=== PATIENT | male | born 1965 | race Two or more races ===

== ENCOUNTER 2024-09-12 15:46 | Inpatient (IN) | payer OTHER ==
[~2024-09-12] VITALS: Ht 188 cm; Wt 90.7 kg
[2024-09-12] MEDS ORDERED: GABAPENTIN300 M2 PO (16:31)
[2024-09-12] MEDS ORDERED: CANDESARTAN CILE4 MG PO (16:31)
[2024-09-12] MEDS ORDERED: ROSUVASTATIN CAL5 MG PO (16:32)
[2024-09-12] MEDS ORDERED: MONTELUKAST SOD10 MG PO (16:32)
--- NOTE | 2024-09-12 16:32 | NUR ---
SE RECIBE PTE ALERTA Y ORIENTADO X3. REFIERE DOLOR ABDOMINAL HACE 3 ZARATE. REFIERE QUE EL RAJESH LE REALIZARON CT Y PRESENTA DIVERTIVCULOS. SE MIDE SV Y SE UBICA
[2024-09-12] MEDS ORDERED: PIPERACILLIN/TAZOBACTAM SODIUM 3.375 GM VIAL IV ONE (18:00)
[2024-09-12] MEDS ORDERED: ONDANSETRON HCL 2 MG/ML VIAL IV ONE (18:00)
[2024-09-12] MEDS ORDERED: 0.9 % SODIUM CHLORIDE 500 ML IV ONE (18:00)
[2024-09-12] MEDS ORDERED: MORPHINE SULFATE 4 MG/ML VIAL IV ONE (18:15)
[2024-09-12 18:29] LABS: HEMATOCRIT 42.7 % (39.0-48.0); HEMOGLOBIN 14.8 g/dL (13-16.00); MEAN CELL VOLUME 92.8 fL (80.0-100.00); MEAN CORPUSCULAR HEMOGLOBIN 32.2 pg (27.00-32.0); MEAN CORPUSCULAR HGB CONC 34.7 g/dl (32.0-36.0); PLATELET COUNT 272 K/uL (150-450); RED BLOOD COUNT 4.61 M/uL (4.00-6.00); RED CELL DISTRIBUTION WIDTH 13.9 % (11.5-14.5)
--- NOTE | 2024-09-12 18:47 | NUR ---
SE EDUCA A PTE SOBRE [place] MEDICO, SE ANGIE MUESTRAS DE LAB[facility]ATORIO UTILIZANDO MEDIDAS ASEPTICA. SE COLOCA H/L TAURUS DE EDEMA. SE ADMINISTRAN MEDICAMENTOS LOS CUALES TOLERA. SE NOTIFICA ESTUDIO DE RX Y CT PENDIENTES A REALIZAR.
[2024-09-12 19:04] LABS: ALBUMIN 3.4 gm/dL (3.4-5.0); BILIRUBIN TOTAL 0.72 mg/dL (0.3-1.2); CREATININE SERUM 0.84 mg/dL (0.70-1.30); GFR 92.89; GLOBULINA 4.9 G/DL (2.4-3.5); POTASSIUM 4.3 mEq/L (3.5-5.1); TOTAL PROTEIN 8.3 gm/dL (6.4-8.2)
[2024-09-12 19:07] LABS: PARTIAL THROMBOPLASTIN TIME 28.9 SECONDS (22.0-34.0); PH,URINE 7.5 (5.0-8.0); PROTHROMBIN TIME 10.9 SECONDS (9.0-11.5); URINE APPEARANCE Clear; URINE BILIRRUBIN Negative (NEGATIVE); URINE BLOOD Small; URINE COLOR Yellow; URINE GLUCOSE Negative (NEGATIVE); URINE KETONE Negative (NEGATIVE); URINE LEUKOCYTE Negative; URINE NITRATE Negative; URINE PROTEIN Negative (NEGATIVE)
[2024-09-12 19:11] LABS: URINE EPITHELIAL CELLS 2.1 uL (0.0-38.8); URINE RBC 29.5 uL (0.0-20.8)
[2024-09-12 19:16] LABS: URINE BACTERIA 1.2 uL (0.0-1933); URINE WBC 0.9 uL (0.0-23.2)
[2024-09-12] MEDS ORDERED: MORPHINE SULFATE 4 MG/ML CARTRIDGE IV ONE (21:45)
[2024-09-12] MEDS ORDERED: MEPERIDINE HCL/PF 50 MG/ML VIAL IV ONE (21:45)
[2024-09-12] MEDS ORDERED: PANTOPRAZOLE SODIUM 40 MG/VIAL VIAL IV SCH (22:35)
[2024-09-12] MEDS ORDERED: MORPHINE SULFATE 4 MG/ML VIAL IV SCH (22:36)
[2024-09-12] MEDS ORDERED: ONDANSETRON HCL 4 MG in 0.9 % SODIUM CHLORIDE 50 ML IV PRN (22:45)
[2024-09-13] MEDS ORDERED: PIPERACILLIN/TAZOBACTAM SODIUM 3.375 GM in 0.9 % SODIUM CHLORIDE 100 ML IV SCH
[2024-09-13 03:45] VITALS: BP 106/69; O2SAT 95
[2024-09-13 08:30] VITALS: BP 123/64; O2SAT 97
[2024-09-13 16:00] VITALS: BP 148/80; O2SAT 98
[2024-09-13] MEDS ORDERED: MORPHINE SULFATE 4 MG/ML CARTRIDGE IV SCH (21:00)
[2024-09-14 01:05] VITALS: BP 151/78; O2SAT 97
[2024-09-14 08:00] VITALS: BP 147/93; O2SAT 97
[2024-09-14 16:55] VITALS: BP 125/76; O2SAT 98
[2024-09-15 00:56] VITALS: BP 148/72; O2SAT 97
[2024-09-15 08:56] VITALS: BP 132/79; O2SAT 98
[2024-09-15 16:00] VITALS: BP 153/88; O2SAT 98
== END 2024-09-16 07:38 | disposition home or self-care (01) | DRG 392 ==
LOC: ER 15:48 → SURH 22:52 → SEC-K 22:52 → SURH 09-13 00:26
PROVIDERS: Nurse Practitioner Family; ADMIT Internal Medicine; ATTEND Internal Medicine
PROC: BW21ZZZ Computerized Tomography (CT Scan) of Abdomen and Pelvis (ICD-10-PCS; principal; 2024-09-12)
DX: K57.32 Diverticulitis of large intestine without perforation or abscess without bleeding (principal); K90.49 Malabsorption due to intolerance, not elsewhere classified